=== PATIENT | female | born 1965 | race Caucasian/White ===

== ENCOUNTER → 2017-03-04 | Outpatient (CLI) | payer BC ==
--- NOTE | 2017-03-04 13:53 | MM ---
Reason for exam: follow-up at short interval from prior study. Last mammogram was performed 8 years and 9 months ago. History: Family history of breast cancer in grandmother. Physical Findings: Nurse did not find any significant physical abnormalities on exam. MG Diagnostic Mammo RT w CAD CC and MLO view(s) were taken of the right breast. Prior study comparison: May 24, 2008, bilateral digital screening mammogram. February 05, 2005, bilateral screening mammogram w/CAD. The breast tissue is heterogeneously dense. This may lower the sensitivity of mammography. Nodular density persists. Ultrasound is recommended. These results were verbally communicated with the patient and result sheet given to the patient on 03/04/17.. ASSESSMENT: Incomplete: need additional imaging evaluation, BI-RAD 0 RECOMMENDATION: Ultrasound of the right breast.
--- NOTE | 2017-03-04 13:59 | USB ---
Reason for exam: additional evaluation requested from abnormal screening. History: Family history of breast cancer in grandmother. US Breast Limited RT Right breast ultrasound demonstrates no cystic or solid lesion seen. Given mammographic appearance tissue biopsy is recommended. These results were verbally communicated with the patient and result sheet given to the patient on 03/04/17. ASSESSMENT: Suspicious, BI-RAD 4 RECOMMENDATION: Stereotactic core biopsy of the right breast. Called Dr. Stoner with mammographic findings and has scheduled an appointment for the patient for 03/17/17 at 1:[address] John. PRELIMINARY REPORT CALLED AND FAXED TO DR. JOHN ON 03/04/17.
== END | disposition home or self-care (01) ==
LOC: RADMAMWWP 10:15
PROVIDERS: ATTEND Obstetrics & Gynecology
DX: R92.8 Other abnormal and inconclusive findings on diagnostic imaging of breast (principal)
CPT/HCPCS: 76642; G0206

== ENCOUNTER 2017-11-10 11:53 | Inpatient (IN) | payer BC ==
--- NOTE | 2017-11-10 13:08 | ED ---
General Adult HPI - General Chief complaint: Chest Pain Stated complaint: Chest pain/ have stents Time Seen by Provider: 11/10/17 12:53 Source: patient, RN notes reviewed, old records reviewed Mode of arrival: wheelchair Limitations: no limitations - History of Present Illness Initial comments: 52-year-old female presenting for evaluation of chest pain. Patient has significant history of coronary artery disease including 9 stents placed over the past 10 years. She is currently on both aspirin and Plavix. She has been taking her medication as prescribed. She denies any preceding chest pain prior to episode this morning which began approximately 20 minutes prior to arrival. At the time my evaluation patient is chest pain-free. She states that with this episode she did have some right arm pain and numbness. No nausea vomiting. No diaphoresis. Patient states she was dyspneic however this is also resolved. - Related Data Home Medications Medication Instructions Recorded Confirmed ALPRAZolam 0.5 mg PO BID 12/01/14 11/10/17 Aspirin [Adult Low Dose Aspirin EC] 81 mg PO DAILY 03/05/17 11/10/17 Clopidogrel [Plavix] 75 mg PO DAILY 03/05/17 11/10/17 Carvedilol [Coreg] 6.25 mg PO BID 11/10/17 11/10/17 Lisinopril [Zestril] 5 mg PO HS 11/10/17 11/10/17 buPROPion HCL [Wellbutrin XL] 300 mg PO DAILY 11/10/17 11/10/17 Previous Rx's Medication Instructions Recorded Atorvastatin [Lipitor] 80 mg PO HS #30 tab 12/04/14 Nitroglycerin Sl Tabs [Nitrostat] 0.4 mg SUBLINGUAL Q5M PRN #30 tab 12/04/14 Allergies Allergy/AdvReac Type Severity Reaction Status Date / Time adhesive tape Allergy Rash/Hives Verified 11/10/17 13:45 Review of Systems ROS Statement: Those systems with pertinent positive or pertinent negative responses have been documented in the HPI. ROS Other: All systems not noted in ROS Statement are negative. Past Medical History Past Medical History: Coronary Artery Disease (CAD), Myocardial Infarction ([place]) Last Myocardial Infarction Date:: 11/30/14 History of Any Multi-Drug Resistant Organisms: None Reported Past Surgical History: Heart Catheterization With Stent, Hernia Repair Additional Past Surgical History / Comment(s): 4 STENTS AUGUST 2009; ADDITIONAL STENTS 11/30/14 Past Anesthesia/Blood Transfusion Reactions: No Reported Reaction Date of Last Stent Placement:: 11/30/14 Past Psychological History: Anxiety Smoking Status: Former smoker Past Alcohol Use History: Occasional Past Drug Use History: None Reported - Past Family History Father Family Medical History: Congestive Heart Failure (CHF), Myocardial Infarction ( [place]) Mother Family Medical History: Cancer, COPD General Exam Limitations: no limitations General appearance: alert, in no apparent distress Head exam: Present: atraumatic, normocephalic Eye exam: Present: normal appearance, PERRL, EOMI ENT exam: Present: normal exam Neck exam: Present: normal inspection. Absent: tenderness, meningismus Respiratory exam: Present: normal lung sounds bilaterally. Absent: respiratory distress Cardiovascular Exam: Present: regular rate, normal rhythm GI/Abdominal exam: Present: soft. Absent: distended, tenderness Extremities exam: Present: normal inspection, full ROM, normal capillary refill. Absent: pedal edema Neurological exam: Present: alert, oriented X3, CN II-XII intact. Absent: motor sensory deficit Psychiatric exam: Present: normal affect, normal mood Skin exam: Present: warm, dry, intact. Absent: cyanosis, diaphoretic Course Vital Signs 11/10/17 11/10/17 12:30 13:12 Temperature 97.6 F Pulse Rate 58 L Pulse Rate [ 70 Apical] Respiratory 20 Rate Blood Pressure 119/79 O2 Sat by Pulse 99 Oximetry - Reevaluation(s) Reevaluation #1: 11/10/17 14:33 Case discussed with cardiology. EKG Findings - EKG Comments: EKG Findings:: EKG: Normal sinus rhythm, left axis deviation, no ST segment elevation, rate of 60, MN interval 150, QRS duration 92, QTC 436 Medical Decision Making - Medical Decision Making 52-year-old female with significant coronary artery disease presents for evaluation of chest pain. Pain is resolved at the time my evaluation. Laboratory studies reveal normal CBC and CMP, troponin is elevated at 1.02. Patient is initiated on heparin. Case is discussed with cardiology and the patient's primary care physician. She will be admitted for further evaluation and treatment. - Lab Data Result diagrams: 11/10/17 13:08 11/10/17 13:08 Lab Results 11/10/17 11/10/17 11/10/17 Range/Units 13:08 13:08 13:08 WBC 7.4 (3.8-10.6) k/uL RBC 4.26 (3.80-5.40) m/uL Hgb 12.9 (11.4-16.0) gm/dL Hct 40.9 (34.0-46.0) % MCV 95.9 (80.0-100.0) fL MCH 30.2 (25.0-35.0) pg MCHC 31.5 (31.0-37.0) g/dL RDW 13.1 (11.5-15.5) % Plt Count 221 (150-450) k/uL Neutrophils % 77 % Lymphocytes % 16 % Monocytes % 4 % Eosinophils % 0 % Basophils % 0 % Neutrophils # 5.7 (1.3-7.7) k/uL Lymphocytes # 1.2 (1.0-4.8) k/uL Monocytes # 0.3 (0-1.0) k/uL Eosinophils # 0.0 (0-0.7) k/uL Basophils # 0.0 (0-0.2) k/uL PT (9.0-12.0) sec INR (<1.2) APTT (22.0-30.0) sec Sodium 137 (137-145) mmol/L Potassium 4.2 (3.5-5.1) mmol/L Chloride 103 (98-107) mmol/L Carbon Dioxide 24 (22-30) mmol/L Anion Gap 10 mmol/L BUN 9 (7-17) mg/dL Creatinine 0.61 (0.52-1.04) mg/dL Est GFR (CKD-EPI)AfAm >90 (>60 ml/min/1.73 sqM) Est GFR (CKD-EPI)NonAf >90 (>60 ml/min/1.73 sqM) Glucose 84 (74-99) mg/dL Calcium 9.1 (8.4-10.2) mg/dL Magnesium 1.6 (1.6-2.3) mg/dL Total Bilirubin 0.9 (0.2-1.3) mg/dL AST 42 H (14-36) U/L ALT 43 (9-52) U/L Alkaline Phosphatase 40 (38-126) U/L Total Creatine Kinase 128 (30-135) U/L CK-MB (CK-2) 7.7 H* (0.0-2.4) ng/mL CK-MB (CK-2) Rel Index 6.0 Troponin I 1.020 H* (0.000-0.034) ng/mL Total Protein 6.6 (6.3-8.2) g/dL Albumin 4.3 (3.5-5.0) g/dL 11/10/17 Range/Units 13:08 WBC (3.8-10.6) k/uL RBC (3.80-5.40) m/uL Hgb (11.4-16.0) gm/dL Hct (34.0-46.0) % MCV (80.0-100.0) fL MCH (25.0-35.0) pg MCHC (31.0-37.0) g/dL RDW (11.5-15.5) % Plt Count (150-450) k/uL Neutrophils % % Lymphocytes % % Monocytes % % Eosinophils % % Basophils % % Neutrophils # (1.3-7.7) k/uL Lymphocytes # (1.0-4.8) k/uL Monocytes # (0-1.0) k/uL Eosinophils # (0-0.7) k/uL Basophils # (0-0.2) k/uL PT 10.6 (9.0-12.0) sec INR 1.1 (<1.2) APTT 23.8 (22.0-30.0) sec Sodium (137-145) mmol/L Potassium (3.5-5.1) mmol/L Chloride (98-107) mmol/L Carbon Dioxide (22-30) mmol/L Anion Gap mmol/L BUN (7-17) mg/dL Creatinine (0.52-1.04) mg/dL Est GFR (CKD-EPI)AfAm (>60 ml/min/1.73 sqM) Est GFR (CKD-EPI)NonAf (>60 ml/min/1.73 sqM) Glucose (74-99) mg/dL Calcium (8.4-10.2) mg/dL Magnesium (1.6-2.3) mg/dL Total Bilirubin (0.2-1.3) mg/dL AST (14-36) U/L ALT (9-52) U/L Alkaline Phosphatase (38-126) U/L Total Creatine Kinase (30-135) U/L CK-MB (CK-2) (0.0-2.4) ng/mL CK-MB (CK-2) Rel Index Troponin I (0.000-0.034) ng/mL Total Protein (6.3-8.2) g/dL Albumin (3.5-5.0) g/dL Disposition Clinical Impression: NSTEMI (non-ST elevated myocardial infarction) Disposition: ADMITTED IP TO THIS HOSP Condition: Stable Is patient prescribed a controlled substance at d/c from ED?: No Referrals: Ralph Park MD [Primary Care Provider] - 1-2 days Time of Disposition: 14:34 Decision to Admit Reason: Admit from EC Decision Date: 11/10/17 Decision Time: 14:34
--- NOTE | 2017-11-10 13:29 | XR ---
EXAMINATION TYPE: XR chest 2V DATE OF EXAM: 11/10/2017 COMPARISON: 12/02/2014 HISTORY: Chest pain TECHNIQUE: Frontal and lateral views of the chest are obtained. FINDINGS: There is no focal air space opacity, pleural effusion, or pneumothorax seen. The cardiac silhouette size is within normal limits. The osseous structures are intact. And mild degenerative c hanges of the thoracic spine are noted. IMPRESSION: No acute cardiopulmonary process.
[2017-11-10 13:32] LABS: INR 1.1 (<1.2); Partial Thromboplastin Time 23.8 sec (22.0-30.0); Prothrombin Time 10.6 sec (9.0-12.0)
[2017-11-10 13:33] LABS: ALT 43 U/L (9-52); AST 42 U/L (14-36); Albumin 4.3 g/dL (3.5-5.0); Alkaline Phosphatase 40 U/L (38-126); Anion Gap 10 mmol/L; Blood Urea Nitrogen 9 mg/dL (7-17); Calcium 9.1 mg/dL (8.4-10.2); Carbon Dioxide 24 mmol/L (22-30); Chloride 103 mmol/L (98-107); Glucose 84 mg/dL (74-99); Magnesium 1.6 mg/dL (1.6-2.3); Potassium 4.2 mmol/L (3.5-5.1); Sodium 137 mmol/L (137-145); Total Bilirubin 0.9 mg/dL (0.2-1.3); Total Protein 6.6 g/dL (6.3-8.2)
[2017-11-10 13:38] LABS: Basophils % (A) 0 %; Eosinophils % (A) 0 %; HCT 40.9 % (34.0-46.0); HGB 12.9 gm/dL (11.4-16.0); Lymphocytes # (A) 1.2 k/uL (1.0-4.8); Lymphocytes % (A) 16 %; MCH 30.2 pg (25.0-35.0); MCHC 31.5 g/dL (31.0-37.0); MCV 95.9 fL (80.0-100.0); Mean Platelet Volume 7.3; Monocytes # (A) 0.3 k/uL (0-1.0); Monocytes % (A) 4 %; Neutrophils # (A) 5.7 k/uL (1.3-7.7); Neutrophils % (A) 77 %; Platelet Count 221 k/uL (150-450); RBC 4.26 m/uL (3.80-5.40); RDW 13.1 % (11.5-15.5); WBC 7.4 k/uL (3.8-10.6)
[2017-11-10 14:01] LABS: Creatine Kinase MB 7.7 ng/mL (0.0-2.4); Troponin I 1.02 ng/mL (0.000-0.034)
[2017-11-10] MEDS ORDERED: HEPARIN SODIUM,PORCINE 5,000 UNIT/ML 1 ML VIAL IV ONE (14:03)
[2017-11-10] MEDS ORDERED: ASPIRIN 325 MG TAB PO STA ×2 (14:03→15:24)
[2017-11-10] MEDS ORDERED: HEPARIN SODIUM,PORCINE 5,000 UNIT/ML 1 ML VIAL IV PRN (14:03)
[2017-11-10] MEDS: HEPARIN SOD,PORK IN 0.45% NACL 25,000 UNIT in 0.45% NACL 1 500ML.BAG IV SCH (14:30)
[2017-11-10] MEDS ORDERED: ACETAMINOPHEN TAB 325 MG TAB PO PRN (14:34)
[2017-11-10] MEDS ORDERED: MORPHINE SULFATE 4 MG/ML SYRINGE IV PRN (14:34)
[2017-11-10] MEDS ORDERED: NALOXONE 0.4 MG/ML 1 ML VIAL IV PRN (14:34)
[2017-11-10] MEDS: 0.9% NACL WITH KCL 20 MEQ/L 1,000 ML IV SCH (15:00)
[2017-11-10] MEDS ORDERED: ALPRAZolam 0.5 MG TAB PO PRN (15:24)
[2017-11-10] MEDS ORDERED: SODIUM CHLORIDE 0.9% 1,000 ML in EMPTY BAG 1 BAG IV ONE (15:24)
[2017-11-10] MEDS ORDERED: ALPRAZolam 0.25 MG TAB PO PRN (15:24)
[2017-11-10] MEDS ORDERED: ATORVASTATIN 80 MG TAB PO STA (15:24)
--- NOTE | 2017-11-10 15:50 | CONS ---
CONSULTATION Ms. Dickerson is a 52-year-old female who is seen for cardiac evaluation in the emergency room. This patient has a prior history of anterior wall infarction with multiple stenting of the LAD. The last time patient presented was in 2014, with an acute myocardial infarction, and she had LAD stenting done. Since then she has been followed by Dr. Corbin. She has been doing fairly well. She claims that she is taking her medications regularly and she does not smoke. The patient is moderately active physically. Today patient started having chest pain which she described as an elephant sitting on her chest, with some shortness of breath and radiation to the arm. EKG in the emergency room was suggestive of old anterior wall myocardial infarction. First troponin is 1.0, suggestive of non-Q-wave myocardial infarction. At present patient is comfortable and without any chest pain. PAST MEDICAL HISTORY: History of hernia repair. HOME MEDICATIONS: Reviewed. PHYSICAL EXAMINATION: Physical examination at present reveals a 52-year-old female who does not appear to be in any acute distress. The heart rate is 75 per minute. Blood pressure is 120/80 mmHg. Head/ENT examination is negative. NECK: Supple. There is no increase in jugular venous pressure. Both the carotid pulses are felt. There is no bruit. Chest is symmetrical. HEART: The PMI is not felt. First and second heart sounds are normal. There is no evidence of any murmur. Lungs are clinically clear to auscultation and percussion. ABDOMEN: Soft. Liver and spleen are not enlarged. Bowel sounds are heard. EXTREMITIES: Peripheral pulsations are 2+. EKG shows normal sinus rhythm with an old anterior wall myocardial infarction. IMPRESSION: 1. Prolonged episode of chest discomfort with abnormal troponin suggestive of non-Q- wave myocardial infarction. This patient has a history of LAD stenting multiple times. 2. History of hyperlipidemia. RECOMMENDATIONS: The patient will be started on heparin. Continue home medications. She will be scheduled for cardiac catheterization to be done tomorrow by Dr. Jones Corbin. MMODL / IJN: [id number] /
[2017-11-10] MEDS: NITROGLYCERIN SL TABS 0.4 MG TAB SUBLINGUAL PRN ×2 (17:25→17:30)
[2017-11-10] MEDS: CARVEDILOL 6.25 MG TAB PO SCH (18:29)
[2017-11-10] MEDS ORDERED: ZOLPIDEM 5 MG TAB PO PRN ×2 (18:30→23:08)
[2017-11-10] MEDS ORDERED: HYDROmorphone 1 MG/ML 1 ML SYRINGE IVP STA (19:55)
[2017-11-10] MEDS ORDERED: NITROGLYCERIN OINT 1 INCH/GM PACKET TOPICAL SCH (20:00)
[2017-11-10] MEDS ORDERED: NITROGLYCERIN-D5W PMX 50 MG in DEXTROSE/WATER 1 250ML.BAG IV SCH (20:00)
[2017-11-10] MEDS: LISINOPRIL 5 MG TAB PO SCH (20:14)
[2017-11-10] MEDS: ATORVASTATIN 80 MG TAB PO SCH (20:14)
[2017-11-10 20:19] LABS: Creatine Kinase MB 39.4 ng/mL (0.0-2.4)
[2017-11-10 20:20] LABS: Troponin I 8.96 ng/mL (0.000-0.034)
[2017-11-10] MEDS ORDERED: SODIUM CHLORIDE 0.9% 1,000 ML IV ONE (21:32)
[2017-11-10] MEDS ORDERED: LIDOCAINE 1% INJ 10MG/ML (20 ML MDV) ONE (21:37)
[2017-11-10] MEDS ORDERED: diphenhydrAMINE 50 MG/ML 1 ML VIAL IVP ONE (21:43)
[2017-11-10] MEDS ORDERED: MIDAZOLAM 2 MG/2 ML VIAL IV ONE (21:43)
[2017-11-10] MEDS ORDERED: MIDAZOLAM 2 MG/2 ML VIAL ONE (21:43)
[2017-11-10] MEDS ORDERED: diphenhydrAMINE 50 MG/ML 1 ML VIAL ONE (21:43)
[2017-11-10] MEDS ORDERED: LIDOCAINE 1% INJ 10MG/ML (20 ML MDV) SQ ONE (21:44)
[2017-11-10] MEDS: NITROGLYCERIN 1000MCG/10ML SYRINGE INTRACORON ONE ×3 (21:55→22:46)
[2017-11-10] MEDS ORDERED: BIVALIRUDIN BOLUS 250 MG/50 ML IV ONE (22:10)
[2017-11-10] MEDS ORDERED: BIVALIRUDIN 250 MG in SODIUM CHLORIDE 0.9% 50 ML IV ONE (22:11)
[2017-11-10] MEDS ORDERED: IOPAMIDOL-370 100ML BTL INJ ONE ×2 (22:11→22:49)
[2017-11-10] MEDS ORDERED: CLOPIDOGREL 75 MG TAB ONE (22:47)
[2017-11-10] MEDS ORDERED: CLOPIDOGREL 75 MG TAB PO ONE (22:49)
[2017-11-10] MEDS ORDERED: MORPHINE SULFATE 4 MG/ML SYRINGE ONE (22:51)
[2017-11-10] MEDS ORDERED: MORPHINE SULFATE 4 MG/ML SYRINGE IV ONE (22:52)
[2017-11-10] MEDS ORDERED: NITROGLYCERIN SL TABS 0.4 MG TAB SUBLINGUAL PRN (23:08)
[2017-11-10] MEDS ORDERED: MAG HYDROX/AL HYDROX/SIMETH 30 ML CUP PO PRN (23:08)
[2017-11-10] MEDS ORDERED: ATROPINE SULFATE 0.1 MG/ML 10ML SYRINGE IV PRN (23:08)
[2017-11-10] MEDS ORDERED: RX INFO: IV CONTRAST WAS GIVEN 1 EACH MISC MISCELLANE PRN (23:08)
[2017-11-10] MEDS: SODIUM CHLORIDE 0.9% 1,000 ML IV SCH (23:30)
[2017-11-11 02:02] LABS: Creatine Kinase MB 46.8 ng/mL (0.0-2.4)
--- NOTE | 2017-11-11 05:59 | CC ---
CARDIAC CATHETERIZATION REPORT DATE OF SERVICE: 11/10/2017. PROCEDURES: 1. Left heart catheterization and coronary angiography. 2. PTCA and stenting of high first obtuse marginal branch with a drug-eluting stent. PERFORMED BY: Dr. Jones Corbin. Moderate conscious sedation time was 76 minutes. Patient was administered Benadryl, versed and morphine. She was observed very closely for oxygen saturation, hemodynamics and EKG. CLINICAL INFORMATION: Mrs. Emy Dickerson is a 52-year-old lady with a known history of CAD and hyperlipidemia. In 2009 she presented with an acute anterior wall NC and underwent stenting of LAD with multiple stents. In 2014, she presented with an acute ST-elevation NC and underwent repeat stenting of the same vessel which was complicated by a total occlusion of the left main also requiring CPR, intra-aortic balloon pump placement. At that time, I placed a stent in the distal left main and proximal LAD and entire LAD was stented. Subsequently she went on to have another opinion at [facility] and she was advised dual antiplatelet therapy for life. At that time, her circumflex and RCA were free of significant disease. She presented to the hospital with symptoms suggestive of angina, had a troponin elevation suggestive of non-ST elevation NC. She was seen and evaluated by Dr. Louis Yousif. I also came in and saw her late yesterday with the understanding we will perform the procedure tomorrow, but she had more chest pain and elevated troponin and was advised to have coronary angiography promptly and so I came in to do the procedure. PROCEDURE NOTE: Under local anesthesia and strict aseptic precautions, a 6-Albanian introducer was placed in the right femoral artery. Standard Ignacio catheters were used to perform coronary angiography and a pigtail catheter was used to check LV pressures. LV gram was not performed. I noted that the circumflex marginal which was a high first obtuse marginal of nondominant circumflex was totally occluded was the culprit lesion. The PLV branch of a dominant RCA also had disease. The previously stented LAD was widely patent with brisk flow. She was advised intervention that was performed in the same setting. PCI PROCEDURE DETAILS: I used a standard left Ignacio guide catheter and a whisper wire to cross the lesion. Predilatation was performed using a 2.25 caliber NC Trek balloon. Subsequently I deployed an 18 mm long 2.25 caliber Xience stent. At the distal end of the stent, there appeared to be a small hazy area and this was addressed with another 2.25 caliber 8 mm Xience stent. Proximally at the origin of the obtuse marginal branch, I deployed a 2.5 caliber 8 mm Xience stent. Excellent angiographic result without complication was achieved. Patient received 300 mg of Plavix and Angiomax bolus and infusion was given. The patient was already on aspirin and Plavix. The sheath was taken out and a Perclose device used to secure hemostasis and she was sent to the room in a stable condition. CARDIAC CATHETERIZATION FINDINGS: The left ventricular end-diastolic pressure was about 20 mmHg without any gradient across the aortic valve. CORONARY ANGIOGRAPHY FINDINGS: RIGHT CORONARY ARTERY: Very tortuous, very dominant vessel free of significant disease in the proximal and midportion. Distally it bifurcates into PDA and PLV. The PDA has minor irregularities and PLV has a 70% eccentric lesion and it bifurcates into 2 branches. The lesion is eccentric best seen in the AP cranial projection and appears to be a significant lesion but not the culprit lesion. LEFT MAIN CORONARY ARTERY: Short patent disease-free vessel that bifurcates into LAD and circumflex. LEFT ANTERIOR DESCENDING CORONARY ARTERY: This vessel is stented right from the ostium through the middle and middle one-third. The entire LAD is widely patent with brisk flow. There are several septal branches that come off which are free of significant disease. LEFT POSTERIOR CIRCUMFLEX CORONARY ARTERY: This is a nondominant vessel, gives off a high first obtuse marginal and then a second obtuse marginal and then continues in the AV groove. The first obtuse marginal is totally occluded, seen as a stump with sluggish flow and thrombus. This is the culprit lesion. FINAL IMPRESSION: This patient has a right dominant system. A new lesion in the PLV branch of RCA is noted. The previously stented LAD is widely patent with brisk flow. Circumflex marginal which is a high first obtuse marginal is now totally occluded and is the culprit lesion. The second obtuse marginal is free of significant disease and groove branch is free of significant disease. Filling pressures are mildly elevated. LV gram was not performed. RECOMMENDATION: PCI of obtuse marginal branch of circumflex was advised. This was performed expeditiously and details of the procedure are available above. Three drug-eluting stents were deployed. Excellent angiographic result was achieved without complication. The sheath was taken out and a Perclose device used to secure hemostasis and she was sent to the room in a stable condition. MMTONY / SEDA: [id number] /
[2017-11-11] MEDS: CARVEDILOL 6.25 MG TAB PO SCH ×2 (06:19→16:58)
[2017-11-11 06:24] LABS: Basophils % (A) 0 %; Eosinophils # (A) 0.1 k/uL (0-0.7); Eosinophils % (A) 1 %; HCT 35.3 % (34.0-46.0); HGB 11.5 gm/dL (11.4-16.0); Lymphocytes # (A) 1.2 k/uL (1.0-4.8); Lymphocytes % (A) 18 %; MCH 30.9 pg (25.0-35.0); MCHC 32.7 g/dL (31.0-37.0); MCV 94.7 fL (80.0-100.0); Mean Platelet Volume 7.9; Monocytes # (A) 0.4 k/uL (0-1.0); Monocytes % (A) 7 %; Neutrophils % (A) 74 %; Platelet Count 170 k/uL (150-450); RBC 3.73 m/uL (3.80-5.40); RDW 13.2 % (11.5-15.5); WBC 6.8 k/uL (3.8-10.6)
[2017-11-11 06:30] LABS: INR 1.1 (<1.2); Prothrombin Time 10.6 sec (9.0-12.0)
[2017-11-11 06:52] LABS: Anion Gap 4 mmol/L; Blood Urea Nitrogen 8 mg/dL (7-17); Calcium 8.4 mg/dL (8.4-10.2); Carbon Dioxide 26 mmol/L (22-30); Chloride 106 mmol/L (98-107); Glucose 91 mg/dL (74-99); Potassium 4.2 mmol/L (3.5-5.1); Sodium 136 mmol/L (137-145)
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
[2017-11-11] MEDS: SODIUM CHLORIDE 0.9% 1,000 ML IV SCH (08:37)
[2017-11-11] MEDS: ASPIRIN 81 MG PO SCH (08:37)
[2017-11-11] MEDS: 0.9% NACL WITH KCL 20 MEQ/L 1,000 ML IV SCH (08:37)
[2017-11-11] MEDS: buPROPion XL 300 MG TAB.ER.24H PO SCH (08:37)
[2017-11-11] MEDS: HEPARIN SOD,PORK IN 0.45% NACL 25,000 UNIT in 0.45% NACL 1 500ML.BAG IV SCH (08:38)
[2017-11-11] MEDS ORDERED: CLOPIDOGREL 75 MG TAB PO SCH (09:00)
[2017-11-11 11:35] VITALS: BMI 30.2
--- NOTE | 2017-11-11 18:15 | ECHOF ---
Referral Reason:CP MEASUREMENTS -------- HEIGHT: 162.6 cm WEIGHT: 71.7 kg BP: 119/79 RVIDd: 3.1 cm (< 3.3) IVSd: 0.9 cm (0.6 - 1.1) LVIDd: 5.8 cm (3.9 - 5.3) LVPWd: 0.8 cm (0.6 - 1.1) IVSs: 1.1 cm LVIDs: 4.0 cm LVPWs: 1.4 cm LA Diam: 3.5 cm (2.7 - 3.8) LAESV Index (A-L): 30.46 ml/m Ao Diam: 2.8 cm (2.0 - 3.7) AV Cusp: 2.1 cm (1.5 - 2.6) EPSS: 0.7 cm MV E Scott: 0.59 m/s MV DecT: 347 ms MV A Scott: 0.66 m/s MV E/A Ratio: 0.88 MV EF SLOPE: 91.13 mm/s (70 - 150) MV EXCURSION: 1.97 cm (> 18.000) FINDINGS -------- Sinus rhythm. This was a technically excellent study. The left ventricle is moderately dilated. Left ventricular wall thickness is normal. Overall left ventricular systolic function is moderate-severely impaired with, an EF between 30 - 35 %. Mid ant erior LV wall motion is hypokinetic. Apical anterior LV wall motion is hypokinetic. Apical late ral LV wall motion is hypokinetic. Apical inferior LV wall motion is hypokinetic. Apical septum LV wall motion is hypokinetic. The right ventricle is mildly enlarged. LA is midly dilated 29-33ml/m2. The right atrium is normal in size. The aortic valve is trileaflet and appears structurally normal. Mild mitral regurgitation is present. The tricuspid valve appears structurally normal. Trace/mild (physiologic) pulmonic regurgitation. The aortic root size is normal. Normal inferior vena cava with normal inspiratory collapse consistent with estimated right atrial pre ssure of 5 mmHg. There is no pericardial effusion. CONCLUSIONS -------- 1. Sinus rhythm. 2. This was a technically excellent study. 3. The left ventricle is moderately dilated. 4. Left ventricular wall thickness is normal. 5. Overall left ventricular systolic function is moderate-severely impaired with, an EF between 30 - 35 %. 6. Mid anterior LV wall motion is hypokinetic. 7. Apical anterior LV wall motion is hypokinetic. 8. Apical lateral LV wall motion is hypokinetic. 9. Apical inferior LV wall motion is hypokinetic. 10. Apical septum LV wall motion is hypokinetic. 11. The right ventricle is mildly enlarged. 12. LA is midly dilated 29-33ml/m2. 13. The right atrium is normal in size. 14. The aortic valve is trileaflet and appears structurally normal. 15. Mild mitral regurgitation is present. 16. The tricuspid valve appears structurally normal. 17. Trace/mild (physiologic) pulmonic regurgitation. 18. The aortic root size is normal. 19. Normal inferior vena cava with normal inspiratory collapse consistent with estimated right atrial pressure of 5 mmHg. 20. There is no pericardial effusion. DECONTAMINATION WORKER: EVA Escalante
[2017-11-11] MEDS: LISINOPRIL 5 MG TAB PO SCH (20:20)
[2017-11-11] MEDS: ATORVASTATIN 80 MG TAB PO SCH (20:20)
[2017-11-11] MEDS: TICAGRELOR 90 MG TAB PO SCH (20:20)
[2017-11-12 05:59] LABS: Basophils % (A) 0 %; Eosinophils # (A) 0.1 k/uL (0-0.7); Eosinophils % (A) 1 %; HCT 36.8 % (34.0-46.0); HGB 12.1 gm/dL (11.4-16.0); Lymphocytes # (A) 1.1 k/uL (1.0-4.8); Lymphocytes % (A) 17 %; MCH 31.3 pg (25.0-35.0); MCHC 32.8 g/dL (31.0-37.0); MCV 95.5 fL (80.0-100.0); Mean Platelet Volume 8.1; Monocytes # (A) 0.4 k/uL (0-1.0); Monocytes % (A) 7 %; Neutrophils # (A) 4.6 k/uL (1.3-7.7); Neutrophils % (A) 74 %; Platelet Count 178 k/uL (150-450); RBC 3.86 m/uL (3.80-5.40); RDW 13.2 % (11.5-15.5); WBC 6.3 k/uL (3.8-10.6)
[2017-11-12 06:08] LABS: INR 1.1 (<1.2); Prothrombin Time 10.3 sec (9.0-12.0)
[2017-11-12] MEDS: CARVEDILOL 6.25 MG TAB PO SCH (06:25)
[2017-11-12 06:42] LABS: ALT 40 U/L (9-52); AST 57 U/L (14-36); Albumin 3.4 g/dL (3.5-5.0); Alkaline Phosphatase 31 U/L (38-126); Anion Gap 5 mmol/L; Blood Urea Nitrogen 9 mg/dL (7-17); Calcium 8.6 mg/dL (8.4-10.2); Carbon Dioxide 28 mmol/L (22-30); Chloride 106 mmol/L (98-107); Glucose 117 mg/dL (74-99); Potassium 4.1 mmol/L (3.5-5.1); Sodium 139 mmol/L (137-145); Total Bilirubin 0.5 mg/dL (0.2-1.3); Total Protein 5.5 g/dL (6.3-8.2)
--- NOTE | 2017-11-12 09:06 | P.PN ---
Subjective Progress Note Date: 11/12/17 Principal diagnosis: NSTEMI. The patient is here essentially for an STEMI with multiple stent placement. No significant new complaints stated. She is somewhat frustrated with the timing of her treatment. Objective - Vital Signs Vital signs: Vital Signs Temp 97.5 F L 11/12/17 04:00 Pulse 74 11/12/17 04:00 Resp 20 11/12/17 04:00 BP 107/93 11/12/17 04:00 Pulse Ox 97 11/12/17 04:00 Intake & Output 11/11/17 11/12/17 11/12/17 18:59 06:59 18:59 Intake Total 1020 60 Balance 1020 60 Weight 80 kg 80.1 kg Intake: Oral 1020 60 Other: # Voids 1 1 - Constitutional General appearance: Absent: average body habitus - Respiratory Respiratory: bilateral: CTA - Cardiovascular Rhythm: regular Heart sounds: normal: S1, S2 Abnormal Heart Sounds: Absent: S3 Gallop - Gastrointestinal General gastrointestinal: Present: soft. Absent: tenderness - Psychiatric Psychiatric: Present: A&O x's 3 - Labs CBC & Chem 7: 11/12/17 05:40 11/12/17 05:40 Labs: Abnormal Lab Results - Last 24 Hours (Table) 11/12/17 Range/Units 05:40 Glucose 117 H (74-99) mg/dL AST 57 H (14-36) U/L Alkaline Phosphatase 31 L (38-126) U/L Total Protein 5.5 L (6.3-8.2) g/dL Albumin 3.4 L (3.5-5.0) g/dL Assessment and Plan (1) NSTEMI (non-ST elevated myocardial infarction) Current Visit: Yes Status: Acute Code(s): I21.4 - NON-ST ELEVATION (NSTEMI) MYOCARDIAL INFARCTION SNOMED Code(s): 063327659 (2) Cardiomyopathy Current Visit: No Status: Acute Code(s): I42.9 - CARDIOMYOPATHY, UNSPECIFIED SNOMED Code(s): 09517698 (3) Hyperlipemia Current Visit: No Status: Acute Code(s): E78.5 - HYPERLIPIDEMIA, UNSPECIFIED SNOMED Code(s): 87782115 Plan: Continue current regimen of treatment. We'll DC once cleared by cardiology. See orders otherwise.
[2017-11-12] MEDS: TICAGRELOR 90 MG TAB PO SCH (10:01)
[2017-11-12] MEDS: buPROPion XL 300 MG TAB.ER.24H PO SCH (10:01)
[2017-11-12] MEDS: ASPIRIN 81 MG PO SCH (10:01)
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
[2017-11-12 12:20] VITALS: RESP 18
[2017-11-12 13:00] VITALS: BP 103/70; PULSE 72; TEMP 97.1
[2017-11-12] MEDS: 0.9% NACL WITH KCL 20 MEQ/L 1,000 ML IV SCH (13:26)
--- NOTE | 2017-11-12 13:51 | US ---
EXAMINATION TYPE: US lower extremity RT DATE OF EXAM: 11/12/2017 COMPARISON: NONE CLINICAL HISTORY: Right groin bleeding. Status post cardiac catheterization 2 days prior. EXAM PERFORMED: Grayscale and color Doppler duplex imaging performed of the groin, post cardiac steffi ter to assess for pseudoaneurysm. SIDE PERFORMED: Right Color and Waveform Doppler performed to assess for the presence of pseudoaneurysm; Is there ultrasound evidence of a pseudoaneurysm: no Is there evidence of AV shunting: no Is there a fluid collection present: no Negative ultrasound. IMPRESSION: No evident pseudoaneurysm.
--- NOTE | 2017-11-12 14:42 | P.PN ---
Subjective Progress Note Date: 11/12/17 Principal diagnosis: Non-Q-wave PA This is a 52-year-old female with known history of prior coronary artery disease with prior multiple stent placements in the LAD who presented to the hospital with a non-Q-wave myocardial infarction. She was taken to the cardiac catheterization lab where she underwent PTCA and stenting of a high first obtuse marginal branch with a drug-eluting stent. Yesterday patient had significant oozing from the groin, FemoStop to be placed, and she had had several pressure dressings in place all of which she saturated through. It seems to be a slow steady ooze from the groin. This morning she continues to have oozing from the groin. Ultrasound of the groin was ordered, this yet pending. We also requested a consultation with vascular surgery. Patient was seen by Dr. Lemus, and new dressing had just been applied to her groin. Therefore, he will reevaluate the patient in a couple of hours. Overall the patient feels well, she denied any chest discomfort, and her breathing has been stable. Ultrasound of the groin report did come back, and was negative for any pseudoaneurysm, no AV shunting. Objective - Vital Signs Vital signs: Vital Signs Temp 97.1 F L 11/12/17 12:00 Pulse 72 11/12/17 12:00 Resp 18 11/12/17 12:00 BP 103/70 11/12/17 12:00 Pulse Ox 97 11/12/17 12:00 Intake & Output 11/11/17 11/12/17 11/12/17 18:59 06:59 18:59 Intake Total 1020 60 Balance 1020 60 Weight 80 kg 80.1 kg Intake: Oral 1020 60 Other: # Voids 1 1 2 # Bowel Movements 0 - Exam PHYSICAL EXAMINATION: GENERAL: 52-year-old female in no acute distress at the time of my examination HEENT: Head is atraumatic, normocephalic. Pupils equal, round. Sclera anicteric. Conjunctiva are clear. Mucous membranes of the mouth are moist. Neck is supple. There is no elevated jugular venous pressure.] bruit is heard. HEART EXAMINATION: Heart S1, S2 normal. No murmur or gallop heard. CHEST EXAMINATION: Lungs are clear to auscultation and precussion. No chest wall tenderness is noted on palpation or with deep breathing. ABDOMEN: Soft, nontender. Bowel sounds are heard. No organomegaly noted. EXTREMITIES: 2+ peripheral pulses with no evidence of peripheral edema and no calf tenderness noted. Right groin soft, study oozing of blood from the right groin, pressure dressing currently in place. NEUROLOGIC patient is awake, alert and oriented ?-3. . - Labs CBC & Chem 7: 11/12/17 05:40 11/12/17 05:40 Labs: Abnormal Lab Results - Last 24 Hours (Table) 11/12/17 Range/Units 05:40 Glucose 117 H (74-99) mg/dL AST 57 H (14-36) U/L Alkaline Phosphatase 31 L (38-126) U/L Total Protein 5.5 L (6.3-8.2) g/dL Albumin 3.4 L (3.5-5.0) g/dL Assessment and Plan Plan: Assessment and plan #1 non-Q-wave myocardial infarction, status post angioplasty and stenting of the high first obtuse marginal branch. #2 postprocedure oozing from the right groin, ultrasound negative for any pseudoaneurysm or AV shunting. Vascular surgery on consult. #3 known history of coronary artery disease with prior multiple LAD stents #4 hypertension #5 hyperlipidemia Plan We will continue to monitor the patient, at present she has a pressure dressing in place. Await further input from vascular surgery. DNP note has been reviewed, I agree with a documented findings and plan of care. Patient was seen and examined.
== END 2017-11-12 16:50 | disposition home or self-care (01) | DRG 247 ==
LOC: EC 11:53 → 6SEL 14:35
PROVIDERS: ADMIT Family Medicine; ATTEND Family Medicine
PROC: 4A023N7 Measurement of Cardiac Sampling and Pressure, Left Heart, Percutaneous Approach (ICD-10-PCS; principal; 2017-11-10 21:11)
PROC: B2111ZZ Fluoroscopy of Multiple Coronary Arteries using Low Osmolar Contrast (ICD-10-PCS; principal; 2017-11-10 21:11)
PROC: 027036Z Dilation of Coronary Artery, One Artery with Three Drug-eluting Intraluminal Devices, Percutaneous Approach (ICD-10-PCS; principal; 2017-11-10 21:11)
DX: I21.4 Non-ST elevation (NSTEMI) myocardial infarction (principal); I43 Cardiomyopathy in diseases classified elsewhere; I25.119 Atherosclerotic heart disease of native coronary artery with unspecified angina pectoris; E78.5 Hyperlipidemia, unspecified; I25.2 Old myocardial infarction; I11.9 Hypertensive heart disease without heart failure; Z79.02 Long term (current) use of antithrombotics/antiplatelets; Z79.82 Long term (current) use of aspirin; Z80.7 Family history of other malignant neoplasms of lymphoid, hematopoietic and related tissues; Z82.49 Family history of ischemic heart disease and other diseases of the circulatory system; Z82.5 Family history of asthma and other chronic lower respiratory diseases; Z87.891 Personal history of nicotine dependence; Z79.899 Other long term (current) drug therapy; Z88.8 Allergy status to other drugs, medicaments and biological substances
CPT/HCPCS: 36415; 71046; 80048; 80053; 82550; 82553; 83735; 84484; 85025; 85610; 85730; 93005; 93306; 93458; 93975; 96365; 96366; 96376; 99285

== ENCOUNTER → 2018-08-27 | Outpatient (CLI) | payer BC ==
--- NOTE | 2018-09-01 10:22 | MM ---
Reason for exam: screening (asymptomatic). Last mammogram was performed 1 year and 6 months ago. History: Family history of breast cancer in grandmother. Benign US biopsy breast VAD RT of the right breast, March 11, 2017. Physical Findings: A clinical breast exam by your physician is recommended on an annual basis and results should be correlated with mammographic findings. MG 3D Screening Mammo W/Cad Bilateral CC and MLO view(s) were taken. Prior study comparison: March 11, 2017, right breast MG diagnostic mammo RT wo CAD. March 04, 2017, right breast MG diagnostic mammo RT w CAD. Previous mammotome biopsy in the right breast. No significant changes when compared with prior studies. ASSESSMENT: Benign, BI-RAD 2 RECOMMENDATION: Routine screening mammogram of both breasts in 1 year.
== END | disposition home or self-care (01) ==
LOC: RADMAMWWP 09:00
PROVIDERS: ATTEND Obstetrics & Gynecology
DX: Z12.31 Encounter for screening mammogram for malignant neoplasm of breast (principal); Z80.3 Family history of malignant neoplasm of breast
CPT/HCPCS: 77063; 77067

== ENCOUNTER → 2021-01-04 | Outpatient (CLI) | payer BC ==
--- NOTE | 2021-01-08 11:32 | MM ---
Reason for exam: screening (asymptomatic). Last mammogram was performed 2 years and 4 months ago. History: Family history of breast cancer in grandmother. Benign US biopsy breast VAD RT of the right breast, March 11, 2017. Physical Findings: A clinical breast exam by your physician is recommended on an annual basis and results should be correlated with mammographic findings. MG 3D Screening Mammo W/Cad Bilateral CC and MLO view(s) were taken. Prior study comparison: August 27, 2018, bilateral MG 3d screening mammo w/cad. March 11, 2017, right breast MG diagnostic mammo RT wo CAD. The breast tissue is heterogeneously dense. This may lower the sensitivity of mammography. Previous mammotome biopsy in the right breast. There is no discrete abnormality. ASSESSMENT: Benign, BI-RAD 2 RECOMMENDATION: Routine screening mammogram of both breasts in 1 year.
== END | disposition home or self-care (01) ==
LOC: RADMAMWWP 10:14
PROVIDERS: ATTEND Family Medicine
DX: Z12.31 Encounter for screening mammogram for malignant neoplasm of breast (principal); Z80.3 Family history of malignant neoplasm of breast
CPT/HCPCS: 77063; 77067

== ENCOUNTER → 2023-06-30 | Outpatient (CLI) | payer BC ==
--- NOTE | 2023-07-03 09:05 | MM ---
Reason for Exam: Screening (asymptomatic). Last mammogram was performed 2 year(s) and 6 month(s) ago. Patient History: Menarche at age 14. First Full-Term at age 30. Postmenopausal. Patient has history of breast feeding. 03/11/2017, Benign Core Biopsy on the right side. Maternal grandmother had breast cancer. Risk Values: Vijaya 5 year model risk: 1.6%. NCI Lifetime model risk: 10.4%. Prior Study Comparison: 03/11/2017 Right Diagnostic Mammogram, [facility]. 08/27/2018 Bilateral Screening Mammogram, [facility]. 01/04/2021 Bilateral Screening Mammogram, [facility]. Tissue Density: The breasts are heterogeneously dense, which may obscure small masses. Findings: Analyzed By CAD. There is no suspicious group of microcalcifications or new suspicious mass in either breast. Previous surgical biopsy clip in the right breast. Benign-appearing calcifications. Within the upper outer quadrant right breast there is an area of asymmetry. Recommend spot compression views. Overall Assessment: Incomplete: need additional imaging evaluation, BI-RAD 0 Management: Diagnostic Mammogram of the right breast. . Patient should continue monthly self-breast exams. A clinical breast exam by your physician is recommended on an annual basis. This exam should not preclude additional follow-up of suspicious palpable abnormalities. Note on Vijaya scores and lifetime risk: 1. A Vijaya score greater than 3% is considered moderate risk. If this is the case, consider specialist referral to assess eligibility for a risk reducing agent. 2. If overall lifetime risk for the development of breast cancer is 20% or higher, the patient may qualify for future screening with alternating mammogram and breast MRI. Electronically signed and approved by: Sean Gordon M.D. Radiologis
== END | disposition home or self-care (01) ==
LOC: RADMAMWWP 11:40
PROVIDERS: ATTEND Family Medicine
DX: Z12.31 Encounter for screening mammogram for malignant neoplasm of breast (principal); Z80.3 Family history of malignant neoplasm of breast; Z78.0 Asymptomatic menopausal state
CPT/HCPCS: 77063; 77067

== ENCOUNTER → 2023-07-07 | Outpatient (CLI) | payer BC ==
--- NOTE | 2023-07-07 14:29 | MM ---
Reason for Exam: Additional evaluation requested from abnormal screening. Last screening mammogram was performed less than 1 month ago. Patient History: Menarche at age 14. First Full-Term at age 30. Postmenopausal. Patient has history of breast feeding. 03/11/2017, Benign Core Biopsy on the right side. Maternal grandmother had breast cancer. Risk Values: Vijaya 5 year model risk: 1.6%. NCI Lifetime model risk: 10.4%. Prior Study Comparison: 03/11/2017 Right Diagnostic Mammogram, [facility]. 08/27/2018 Bilateral Screening Mammogram, [facility]. 01/04/2021 Bilateral Screening Mammogram, [facility]. 06/30/2023 Bilateral MG 3D screening mammo w/cad, [facility]. Tissue Density: Right: The breasts are heterogeneously dense, which may obscure small masses. Findings: Analyzed By CAD. The pattern is symmetrical. Pattern appears stable. No significant interval change is evident. Core marker is within the right breast. Under compression no persistent distortion is evident. Medial lateral view appears normal. No suspicious groups of microcalcifications, spiculated or lobular masses, architectural distortion or other secondary signs of malignancy are mammographically apparent. Overall Assessment: Benign, BI-RAD 2 Management: Screening Mammogram of both breasts in 1 year. A negative mammogram report should not preclude additional follow up of suspicious palpable abnormalities. Patient should continue monthly self breast exam. A clinical breast exam by your physician is recommended on an annual basis and results should be correlated with mammographic findings. Electronically signed and approved by: El Mckeon D.O. Radiologis
== END | disposition home or self-care (01) ==
LOC: RADMAMWWP 13:47
PROVIDERS: ATTEND Family Medicine
DX: R92.331 Mammographic heterogeneous density, right breast (principal); Z80.3 Family history of malignant neoplasm of breast; Z78.0 Asymptomatic menopausal state
CPT/HCPCS: 77061; 77065